=== PATIENT | female | born 1955 | race Caucasian/White ===

== ENCOUNTER 2024-01-27 11:00 | Outpatient (OUT) | payer MEDICARE, SELFPAY ==
--- NOTE | 2024-01-27 | XR_ITS ---
The [address] [address] Patient Name: RICKY HEATON MRN: [id number] date: 1955 Sex: F Assigned Patient Location: Current Patient Location: Accession/Order Number: [id number] Exam Date: 01/27/2024 11:05 Report Date: 01/27/2024 12:10 At the request of: LAURA CHAMBERLAIN Procedure: XR foot LT min 3V PROCEDURE: XR foot LT min 3V COMPARISON: None. HISTORY: LEFT FOOT PAIN FINDINGS: BONES:No acute fracture or dislocation. Moderate enthesopathic spurring of the calcaneus. Remote healed fracture diaphysis of the third metatarsal. Mild degenerative changes SOFT TISSUES:Negative. No visible soft tissue swelling. EFFUSION:None visible. OTHER: Negative. XR/XR foot LT min 3V IMPRESSION: Degenerative changes, no acute abnormality Electronically authenticated by: JOSE D LEWIS Date: 01/27/2024 12:10
== END 2024-01-27 11:01 | disposition home or self-care (01) ==
PROVIDERS: Family Provider Family Medicine; Visit Provider Podiatrist Foot & Ankle Surgery
DX: M79.672 Pain in left foot (principal)
CPT/HCPCS: 73630

== ENCOUNTER 2024-02-11 09:54 | Outpatient (OUT) | payer MEDICARE, SELFPAY ==
--- NOTE | 2024-02-11 09:55 | VEIN_ITS ---
The [address] [address] Patient Name: RICKY HEATON MRN: [id number] date: 1955 Sex: F Assigned Patient Location: Current Patient Location: [facility] Accession/Order Number: [id number] Exam Date: 02/11/2024 09:55 Report Date: 02/11/2024 12:30 At the request of: JOSE D LEWIS Procedure: VC SEGMENTAL PRESSURES EXAM: VC SEGMENTAL PRESSURES HISTORY: R09.89 Signs and symptoms involving circulatory system COMPARISON: None. FINDINGS: Segmental pressures presented as follows (right, left) in mmHg. Brachial: 117, 127 Upper thigh: 170, 182 Lower thigh: 151, 157 Calf: 166, 172 DPA: 171, 162 HEALTH CONSULTANT: 168, 160 1st Toe: 206, 193 MILIND: 1.35, 1.28 TBI: 1.16, 1.52 The ABIs suggest calcific atherosclerosis The TBI's suggest calcific atherosclerosis PVR waveforms: Right leg: Thigh: Normal Above knee: Normal Below knee: Normal Right ankle: Normal Left leg: Thigh: Normal Above knee: Normal Below knee: Normal Right ankle: Normal VEIN/VC SEGMENTAL PRESSURES IMPRESSION: MILIND and TBI values suggest calcific atherosclerosis Normal PVR waveforms Electronically authenticated by: JOSE D LEWIS Date: 02/11/2024 12:30
== END 2024-02-11 09:55 | disposition home or self-care (01) ==
PROVIDERS: Family Provider Family Medicine; PCP Podiatrist Foot & Ankle Surgery; Visit Provider Podiatrist Foot & Ankle Surgery
DX: R09.89 Other specified symptoms and signs involving the circulatory and respiratory systems (principal)
CPT/HCPCS: 93923